=== PATIENT | male | born 1945 | race Caucasian/White ===

== ENCOUNTER 2023-11-10 21:19 | Emergency (ER) | payer MEDICARE, SELFPAY ==
[2023-11-10 21:20] VITALS: BP 111/75
--- NOTE | 2023-11-10 21:47 | ED.GENMED ---
History of Present Illness
General
Chief Complaint: Abdominal Symptoms
Source: patient
Exam Limitations: none
Time Seen by Provider: 11/10/23 21:36
Travel History
Have you had any contact with someone who has COVID-19?: No
Do you have any symptoms of coronavirus? Fever > 100 degrees, chills, cough, shortness of breath, sore throat, loss of taste or smell, muscle aches, or headache?: No
History of Present Illness
History of Present Illness:
This is a 78 year old male that comes in with multiple complaints. States that he went out to cut his lawn on his riding mower. States that his nose started to run. States thta he then started with some abd pain. State that he went into the house
and he started with diarrhea. States that it was a lot and he couldn't believe that he had that much in him. States that his stomach was still upset and he vomited a little. States that he had chills. Denies any fever, chest pain, SOB, headache,
dizziness, urinary burning.
Past History
Past History
ED Past Medical History: Arrthythmia (Atrial fibrillation), Asthma, CAD, CHF, HTN, Hypercholesterolemia, NIDDM, Psychiatric (Anxiety, Depression) and Other (Back pain, )
ED Past Surgical History: Cardiac ( CABG, Cardiac ablation), Orthopedic (Back surgery) and Other (Recent back surgery)
Social History
Tobacco: Former smoker
Alcohol: Occasional
Personal:
Living: with family
Employment: Retired
Review of Systems
Review of Systems
All Other Systems: ROS reviewed and negative except as documented in HPI and ROS
Constitutional: Reports chills; Denies fever
EENT: Reports other (Nasal discharge)
Respiratory: Reports no symptoms; Denies cough or trouble breathing
Cardiac: Reports no symptoms; Denies chest pain
ABD/GI: Reports abdominal pain, nausea, vomiting and diarrhea
: Reports no symptoms
Musculoskeletal: Reports no symptoms
Skin: Reports no symptoms
Neurological: Reports no symptoms; Denies dizzy or headache
Psychiatric: Reports no symptoms
Phy Exam
General Physical Exam
General Presentation: no apparent distress
General age: appears stated age
General Skin: warm and dry
General Habitus: elderly
General Mental: alert
General Hydration: dry mucous membranes
ENT Exam
ENT Exam: TM's normal, pharynx normal and neck supple
Eye Exam
Eye Exam: EOMI
Cardiovascular Exam
Cardiovascular Exam: regular rate/rhythm, normal peripheral pulses and other (Murmur)
Pulmonary Exam
Pulmonary Exam: lungs clear, no respiratory distress, no rales, chest non tender, no crackles, no rhonchi, no wheezing and no cough
Gastrointestinal Exam
Gastrointestinal Exam: non tender, soft, no organomegaly, no pulsatile mass, non distended and other (Hypoactive bowel sounds)
Musculoskeletal Exam
Musculoskeletal Exam: full ROM and no edema
Skin Exam
Skin Exam: normal color, warm/dry, no rash and no petechia
Psychiatric Exam
Psychiatric Exam: normal mood/affect
Course
Orders/Labs/Results
Orders:
Orders
11/10/23 21:46
0.9% Sodium Chloride 1000 ml [Nss] 1,000 ml IV BOLUS
Acetaminophen [Tylenol] 1,000 mg PO NOW STA
CR Chest - 2 Views Urgent
Comment:
Reason For Exam: fever
11/10/23 21:50
Ondansetron Injectable [Zofran] 4 mg IV NOW STA
11/10/23 21:55
COVID-19 Antigen Urgent
Source: Nasal Swab
11/10/23 22:03
Complete Blood Count/With Diff Urgent
Comprehensive Metabolic Panel Urgent
Lactic Acid Urgent
Blood Culture Q30M
ROLDAN Source: Blood/Venous
Specimen Description:
11/10/23 23:20
Urinalysis Reflex To Culture Urgent
Date Specimen was Collected: 11/10/23
Time Specimen was Collected: 23:11
Urine Microscopic Reflex Cult Urgent
Blood Culture Q30M
ROLDAN Source: Blood/Venous
Specimen Description:
Abnormal Lab Results
11/10/23 11/10/23
22:03 23:20
WBC 13.4 H 10^3/uL
(4.8-10.8)
Absolute Neuts (auto) 11.3 H 10^3/uL
(1.4-6.5)
Absolute Lymphs (auto) 0.8 L 10^3/uL
(1.2-3.4)
Absolute Monos (auto) 1.0 H 10^3/uL
(0.1-0.6)
Neutrophils % 84.5 H %
(42.2-75.2)
Lymphocytes % 5.7 L %
(20.5-51.1)
BUN 31 H mg/dl
(9-20)
Glucose 129 H mg/dl
(70-99)
Urine Ketones 1+ A
(Negative)
Ur Occult Blood Reflex 2+ A
(Negative)
Urine RBC 7-10 A /HPF
(0-2)
Urine Bacteria (Reflex) Few A
(Negative)
11/10/23 22:03
11/10/23 22:03
Leukocytosis, Dehydration. Glucose nonfasting. Urine negative for infection. COVID negative, Lactic acid normal at 1.4
Vital Signs
Initial and Last Documented VS:
Initial Vital Signs
Temp Pulse Resp BP Pulse Ox
98.5 F 93 18 111/75 97
11/10/23 21:20 11/10/23 21:20 11/10/23 21:20 11/10/23 21:20 11/10/23 21:20
Last Documented Vital Signs
Temp Pulse Resp BP Pulse Ox
101.6 F H 82 18 131/75 93
11/10/23 21:49 11/10/23 23:31 11/10/23 23:31 11/10/23 23:31 11/10/23 23:31
MDM/Problems Addressed
Differential Diagnosis Includes:
UTI, PNA, Viral syndrome
MDM/Problems Addressed:
This is a 78 year old male that comes in with c/o vomiting diarrhea and chills. States that this started today.
Will get labs, chest x-ray, urine, Give IV fluids and Tylenol for fever
Back into see patient and . Explained that his blood work shows that his WBC are elevated and that he was dehdyrated. Patient chest x-ray is normal and his urine is negative for infection. COVID is negative. This may be a viral illness.
Explained that blood culture were drawn and if they would come back positive patient would be called and asked to come back. Patient to increase his water intake to 8-8oz glasses daily. Follow up with the family doctor for recheck. Return with any
concens.
Chronic conditions affecting care:
NA
Acute Exacerbation and/or Progression of Chronic Illness:
NA
*Radiology
Radiology exam reviewed: preliminary read by ED provider (Chest- Negative for active disease. ) and radiology read reviewed (Chest- No evidence of active cardiopulmonary disease. )
*Pulse Oximetry
Patient hypoxic: no
*EKG
Interpreted by ED Provider?: NA
Rate: EKG- N/A
*Monitoring Coordinator Interpretation
Rate: Monitoring Coordinator- N/A
*Critical Care Note
Total Time (30-74mins, 75-104mins- exclusive of procedures): Not Applicable
ED Attending Note
-
Portions of this chart may have been created with voice recognition software.� Occasional wrong word or��sound alike� substitutions may have occurred due to the inherent limitations of voice recognition software.
Discharge Plan
Departure
Patient Disposition: Home (Routine Discharge)
Date of Disposition: 11/11/23
Time of Disposition: :
Patient with high blood pressure during this ER visit?: Yes
Condition: Good
Covid-19: Negative COVID-19
Discharge Problem:
Fever
Instructions: Fever, Adult (DC), BLOOD PRESSURE
Prescriptions:
No Action
furosemide [Lasix] 40 MG tablet
40 mg PO DAILY
carvedilol [Coreg] 25 MG tablet
25 mg PO BID
aspirin 81 MG tablet,delayed release (DR/EC)
81 mg PO DAILY
lisinopril [Zestril] 30 MG tablet
30 mg PO BID
finasteride 5 MG tablet
5 mg PO DAILY
metaxalone [Skelaxin] 800 MG tablet
400 mg PO BID
dabigatran etexilate [Pradaxa] 150 MG capsule
150 mg PO BID
dofetilide 500 MCG capsule
500 mcg PO Q12
duloxetine 30 MG capsule,delayed release(DR/EC)
90 mg PO DAILY
Referrals:
John Hairston MD [Family Provider] - Follow up in 2-3 days
Activity Restrictions/Additional Instructions:
As discussed, your blood work shows that your WBC are slightly elevated and that you are dehydrated. Please increase your water intake to 8-8oz glasses daily. Your Chest x-ray is negative for any acute process and your urine is negative for
infection. You are COVID negative. This may be a viral illness. If your blood culture would come back positive you will be called and asked to come back. Please use Tylenol or Ibuprofen as needed for any fever. IF YOU HAVE ANY OTHER CONCERNS PLEASE
RETURN TO THE EMERGENCY ROOM.
Interventions
Interventions:
*Risk Screen - Suicide Last Done: 11/10/23 21:20
*General Assessment Last Done: 11/10/23 21:20
*Neglect/Abuse Screening Last Done: 11/10/23 21:20
ED- Fall Risk Assessment Last Done: 11/10/23 22:20
*ED COVID-19 Vaccine History Last Done: 11/10/23 21:48
XG-Xftzmb-Fscicwqbqi Assessment Last Done: 11/10/23 22:20
Discharge Date and Time
Print Language: GREENLANDIC
[2023-11-10 21:54] VITALS: BMI 31.8
[2023-11-10] MEDS: ZOFRAN 4 MG IV (22:06)
[2023-11-10] MEDS: TYLENOL 1000 MG PO (22:06)
[2023-11-10] MEDS: NSS 1000 IV (22:07)
[2023-11-10 22:10] LABS: % Basophils 0.2 % (0-2); % Immature Granulocytes 0.3 % (0-0.5); % Lymphocytes 5.7 % (20.5-51.1); % Monocytes 7.3 % (1.7-9.3); % Neutrophils 84.5 % (42.2-75.2); Absolute Eosinophils 0.3 10^3/uL (0-0.7); Absolute Lymphocytes 0.8 10^3/uL (1.2-3.4); Absolute Neutrophils 11.3 10^3/uL (1.4-6.5); Hemoglobin 14.4 g/dL (13.0-18.0); Mean Corp Hgb Conc. 34.3 g/dL (33.0-37.0); Mean Corpuscular Hgb 30.3 pg (27.0-31.0); Mean Corpuscular Volume 88.4 fL (80.0-94.0); Mean Platelet Volume 9.2 fL (7.4-10.4); Nucleated Red Blood Cells % 0 % (-); Platelet Count 206 10^3/uL (130-400); Red Blood Cell Count 4.75 10^6/uL (4.70-6.10); Red Cell Dist. Width 13.6 % (11.5-14.5); White Blood Cell Count 13.4 10^3/uL (4.8-10.8)
[2023-11-10 22:22] LABS: Lactic Acid 1.4 mmol/L (0.7-2.0)
[2023-11-10 22:25] LABS: ALT (SGPT) 33 U/L (0-50); AST (SGOT) 35 U/L (17-59); Albumin 4.7 g/dl (3.5-5.0); Alkaline Phosphatase 120 U/L (38-126); Blood Urea Nitrogen 31 mg/dl (9-20); Calcium 9.8 mg/dl (8.4-10.2); Carbon Dioxide 25 mmol/L (22-30); Chloride 106 mmol/L (98-107); Estimated Creatinine Clearance 94 ml/min; Glucose 129 mg/dl (70-99); Potassium 4.1 mmol/L (3.5-5.1); Sodium 142 mmol/L (135-145); Total Bilirubin 0.9 mg/dl (0.2-1.3); Total Protein 7.9 g/dl (6.3-8.2); eGFR > 60.00
[2023-11-10 22:54] LABS: COVID-19 Antigen Negative (Negative)
[2023-11-10 23:31] VITALS: BP 131/75
[2023-11-10 23:33] LABS: Urine Albumin Negative (Neg - Trace); Urine Bilirubin Negative (Negative); Urine Character Clear (Clear); Urine Color Yellow; Urine Glucose Negative (Negative); Urine Ketone 1+ (Negative); Urine Leukocyte Negative (Negative); Urine Nitrite Negative (Negative); Urine Occult Blood 2+ (Negative); Urine Specific Gravity 1.015 (<1.030); Urine Urobilinogen Negative (Neg - 1+)
[2023-11-11 00:17] LABS: Urine Bacteria Few (Negative); Urine Squamous Cell >30 /LPF (Few); Urine White Cell 0-2 /HPF (0-5)
[2023-11-11 02:01] VITALS: BP 130/81
== END 2023-11-11 02:00 | disposition home or self-care (01) ==
LOC: EMR 21:19
PROVIDERS: Clinical Nurse Specialist Family Health; EMERGENCY PHYSICIAN Emergency Medicine; FAMILY PHYSICIAN Family Medicine
DX: R50.9 Fever, unspecified (principal); I11.0 Hypertensive heart disease with heart failure; I50.9 Heart failure, unspecified; Z87.891 Personal history of nicotine dependence
CPT/HCPCS: 99284; 96374; 96361; 71046; 80053; 81003; 81015; 83605; 85025; 87040; 87811

== ENCOUNTER 2023-12-05 15:06 | Emergency (ER) | payer MEDICARE, SELFPAY ==
[2023-12-05 15:10] VITALS: BP 168/141
[2023-12-05 15:47] LABS: % Basophils 0.2 % (0-2); % Immature Granulocytes 0.7 % (0-0.5); % Lymphocytes 6.6 % (20.5-51.1); % Monocytes 3.8 % (1.7-9.3); % Neutrophils 87.7 % (42.2-75.2); Absolute Eosinophils 0.1 10^3/uL (0-0.7); Absolute Immature Granulocytes 0.1 10^3/uL (0-0.05); Absolute Lymphocytes 0.8 10^3/uL (1.2-3.4); Absolute Monocytes 0.4 10^3/uL (0.1-0.6); Absolute Neutrophils 9.9 10^3/uL (1.4-6.5); Hematocrit 45.2 % (39.0-52.0); Hemoglobin 14.8 g/dL (13.0-18.0); Mean Corp Hgb Conc. 32.7 g/dL (33.0-37.0); Mean Corpuscular Hgb 30.1 pg (27.0-31.0); Mean Corpuscular Volume 92.1 fL (80.0-94.0); Mean Platelet Volume 9.8 fL (7.4-10.4); Nucleated Red Blood Cells % 0 % (-); Platelet Count 228 10^3/uL (130-400); Red Blood Cell Count 4.91 10^6/uL (4.70-6.10); Red Cell Dist. Width 13.6 % (11.5-14.5); White Blood Cell Count 11.3 10^3/uL (4.8-10.8)
[2023-12-05 15:56] LABS: Lactic Acid 2.6 mmol/L (0.7-2.0)
[2023-12-05 16:00] LABS: ALT (SGPT) 40 U/L (0-50); AST (SGOT) 42 U/L (17-59); Albumin 5.1 g/dl (3.5-5.0); Alkaline Phosphatase 145 U/L (38-126); Blood Urea Nitrogen 24 mg/dl (9-20); Calcium 9.8 mg/dl (8.4-10.2); Carbon Dioxide 23 mmol/L (22-30); Chloride 104 mmol/L (98-107); Glucose 116 mg/dl (70-99); Lipase 122 U/L (23-300); Potassium 4.3 mmol/L (3.5-5.1); Sodium 141 mmol/L (135-145); Total Bilirubin 0.9 mg/dl (0.2-1.3); Total Protein 8.9 g/dl (6.3-8.2); eGFR > 60.00
[2023-12-05 16:14] LABS: COVID-19 Antigen Negative (Negative)
--- NOTE | 2023-12-05 16:37 | ED.GENMED ---
History of Present Illness
<Sejal Valdes HSE ADVISOR - Last Filed: 12/05/23 23:17>
General
Chief Complaint: Fever
Source: patient and spouse
Exam Limitations: none
Time Seen by Provider: 12/05/23 16:30
Nursing documentation reviewed up to this point in time: agreed with
History of Present Illness
History of Present Illness:
78 yo male with h/o asthma, A-fib on Pradaxa, CAD, HTN, CABG presents stating while driving earlier today at 11:30 AM he developed sudden onset of severe nausea, he drove home by 1:30 and had to run into the house with severe diarrhea, and started
vomiting small amounts but with 'really bad heaving/retching.' He took 2 Imodium at 2 PM and has had no diarrhea since.
Patient states 'I am so weak.' He denies fever but has felt chilled. He denies headache. He denies abdominal pain. He denies chest pain or trouble breathing. No recent travel, no known sick contacts. No known exposures, he had a smoothie for
breakfast which she has had before.
Past History
<Sejal Valdes HSE ADVISOR - Last Filed: 12/05/23 23:17>
Past History
ED Past Medical History: Arrthythmia (Atrial fibrillation), Asthma, CAD, CHF, HTN, Hypercholesterolemia, NIDDM, Psychiatric (Anxiety, Depression), Other (Back pain, ) and Other
ED Past Surgical History: Cardiac ( CABG, Cardiac ablation), Orthopedic (Back surgery) and Other (Recent back surgery)
Social History
Tobacco: Former smoker
Alcohol: Occasional
Personal:
Living: with family
Employment: Retired
Review of Systems
<Sejal Valdes, HSE ADVISOR - Last Filed: 12/05/23 23:17>
Review of Systems
Allergies reviewed?: Yes
All Other Systems: ROS reviewed and negative except as documented in HPI and ROS
Constitutional: Reports fatigue and chills
EENT: Denies sore throat
Respiratory: Denies trouble breathing
Cardiac: Denies chest pain
ABD/GI: Reports nausea, vomiting and diarrhea; Denies abdominal pain, bloody stools or black stools
: Reports bleeding (intermittent hematuria followed by [facility]); Denies dysuria, difficulty voiding or urgency
Musculoskeletal: Reports no symptoms
Skin: Reports no symptoms
Neurological: Reports no symptoms
Phy Exam
<Sejal Valdse, HSE ADVISOR - Last Filed: 12/05/23 23:17>
Physical Exam
Physical Exam:
GENERAL: No acute distress. A&Ox3.
CONSTITUTIONAL: Temp 101.3 po
EYES: Clear, conjunctivae normal
Neck: Supple
ENMT: dry mucus membranes, Pharynx nl
RESPIRATORY: Regular respirations, nonlabored, lungs clear.
CARDIOVASCULAR: Regular rate and rhythm, no murmurs, no rubs.
GI: Soft, nontender, nondistended, hypoactive BS
MUSCULOSKELETAL: Moves with ease. Well perfused. No edema
SKIN: Warm, dry, pink
PSYCH: Normal mood and affect. Well kept, interactive and appropriate
NEUROLOGIC: Awake, alert and oriented. No focal neurological deficits
Course
<Sejal Valdes, HSE ADVISOR - Last Filed: 12/05/23 23:17>
Orders/Labs/Results
Orders:
Orders
12/05/23 15:33
COVID-19 Antigen Urgent
Source: Nasal Swab
Complete Blood Count/With Diff Urgent
Comprehensive Metabolic Panel Urgent
Lactic Acid Urgent
Lipase Urgent
Blood Culture Urgent
ROLDAN Source: Blood/Venous
Specimen Description:
Influenza A+B Rapid Molecular Urgent
ROLDAN Source: Nasal Swab
Specimen Description:
12/05/23 16:31
0.9% Sodium Chloride 1000 ml [Nss] 1,000 ml IV BOLUS
12/05/23 16:36
Acetaminophen [Tylenol] 1,000 mg PO NOW STA
12/05/23 17:35
CR Chest - 2 Views Urgent
Comment:
Reason For Exam: Fever, chills
12/05/23 19:14
Urinalysis Reflex To Culture Urgent
Date Specimen was Collected: 12/05/23
Time Specimen was Collected: 19:06
Urine Microscopic Reflex Cult Urgent
12/05/23 19:35
Ondansetron Injectable [Zofran] 4 mg IV NOW STA
Abnormal Lab Results
12/05/23 12/05/23
15:33 19:14
WBC 11.3 H 10^3/uL
(4.8-10.8)
MCHC 32.7 L g/dL
(33.0-37.0)
Abs Immat Gran (auto) 0.1 H 10^3/uL
(0-0.05)
Absolute Neuts (auto) 9.9 H 10^3/uL
(1.4-6.5)
Absolute Lymphs (auto) 0.8 L 10^3/uL
(1.2-3.4)
Immature Gran % 0.7 H %
(0-0.5)
Neutrophils % 87.7 H %
(42.2-75.2)
Lymphocytes % 6.6 L %
(20.5-51.1)
BUN 24 H mg/dl
(9-20)
Glucose 116 H mg/dl
(70-99)
Lactic Acid 2.6 H mmol/L
(0.7-2.0)
Alkaline Phosphatase 145 H U/L
(38-126)
Total Protein 8.9 H g/dl
(6.3-8.2)
Albumin 5.1 H g/dl
(3.5-5.0)
Urine Ketones 1+ A
(Negative)
Ur Occult Blood Reflex 1+ A
(Negative)
Urine RBC 3-6 A /HPF
(0-2)
Urine Bacteria (Reflex) Few A
(Negative)
12/05/23 15:33
12/05/23 15:33
Vital Signs
Initial and Last Documented VS:
Initial Vital Signs
Temp Pulse Resp BP Pulse Ox
97.8 F 100 22 168/141 95
12/05/23 15:10 12/05/23 15:10 12/05/23 15:10 12/05/23 15:10 12/05/23 15:10
Last Documented Vital Signs
Temp Pulse Resp BP Pulse Ox
97.8 F 84 16 116/44 93
12/05/23 15:10 12/05/23 20:00 12/05/23 20:00 12/05/23 20:00 12/05/23 20:00
Continuous Pickling Line Pickler consulted with Physician
Continuous Pickling Line Pickler consulted with physician?: Yes
Name of Physician Consulted: Kristal
<Mo Giraldo, DO - Last Filed: 12/05/23 19:50>
Orders/Labs/Results
Orders:
Orders
12/05/23 15:33
COVID-19 Antigen Urgent
Source: Nasal Swab
Complete Blood Count/With Diff Urgent
Comprehensive Metabolic Panel Urgent
Lactic Acid Urgent
Lipase Urgent
Blood Culture Urgent
ROLDAN Source: Blood/Venous
Specimen Description:
Influenza A+B Rapid Molecular Urgent
ROLDAN Source: Nasal Swab
Specimen Description:
12/05/23 16:31
0.9% Sodium Chloride 1000 ml [Nss] 1,000 ml IV BOLUS
12/05/23 16:36
Acetaminophen [Tylenol] 1,000 mg PO NOW STA
12/05/23 17:35
CR Chest - 2 Views Urgent
Comment:
Reason For Exam: Fever, chills
12/05/23 19:14
Urinalysis Reflex To Culture Urgent
Date Specimen was Collected: 12/05/23
Time Specimen was Collected: 19:06
Urine Microscopic Reflex Cult Urgent
12/05/23 19:35
Ondansetron Injectable [Zofran] 4 mg IV NOW STA
Abnormal Lab Results
12/05/23 12/05/23
15:33 19:14
WBC 11.3 H 10^3/uL
(4.8-10.8)
MCHC 32.7 L g/dL
(33.0-37.0)
Abs Immat Gran (auto) 0.1 H 10^3/uL
(0-0.05)
Absolute Neuts (auto) 9.9 H 10^3/uL
(1.4-6.5)
Absolute Lymphs (auto) 0.8 L 10^3/uL
(1.2-3.4)
Immature Gran % 0.7 H %
(0-0.5)
Neutrophils % 87.7 H %
(42.2-75.2)
Lymphocytes % 6.6 L %
(20.5-51.1)
BUN 24 H mg/dl
(9-20)
Glucose 116 H mg/dl
(70-99)
Lactic Acid 2.6 H mmol/L
(0.7-2.0)
Alkaline Phosphatase 145 H U/L
(38-126)
Total Protein 8.9 H g/dl
(6.3-8.2)
Albumin 5.1 H g/dl
(3.5-5.0)
Urine Ketones 1+ A
(Negative)
Ur Occult Blood Reflex 1+ A
(Negative)
Urine RBC 3-6 A /HPF
(0-2)
Urine Bacteria (Reflex) Few A
(Negative)
12/05/23 15:33
12/05/23 15:33
Vital Signs
Initial and Last Documented VS:
Initial Vital Signs
Temp Pulse Resp BP Pulse Ox
97.8 F 100 22 168/141 95
12/05/23 15:10 12/05/23 15:10 12/05/23 15:10 12/05/23 15:10 12/05/23 15:10
Last Documented Vital Signs
Temp Pulse Resp BP Pulse Ox
97.8 F 84 16 116/44 93
12/05/23 15:10 12/05/23 20:00 12/05/23 20:00 12/05/23 20:00 12/05/23 20:00
<Sejal Valdes, HSE ADVISOR - Last Filed: 12/05/23 23:17>
MDM/Problems Addressed
Differential Diagnosis Includes:
Gastroenteritis, dehydration
MDM/Problems Addressed:
78 yo male with h/o asthma, A-fib on Pradaxa, CAD, HTN, CABG presents stating while driving earlier today at 11:30 AM he developed sudden onset of severe nausea, he drove home by 1:30 and had to run into the house with severe diarrhea, and started
vomiting small amounts but with 'really bad heaving/retching.' He took 2 Imodium at 2 PM and has had no diarrhea since.
Patient states 'I am so weak.' He denies fever but has felt chilled. He denies headache. He denies abdominal pain. He denies chest pain or trouble breathing. No recent travel, no known sick contacts. No known exposures, he had a smoothie for
breakfast which she has had before.
Temp for me is 101.3 po, NAD appears moderately ill
CBC: WBC 11.3 with elevated neutrophils, improved from 11/09
CMP: BUN 24, improved from 11/09, IV fluids infusing for mild dehydration
Lactic 2.6
Lipase within normal limits
COVID test is negative
Patient seen here on 11/09 for abdominal pain and diarrhea. He states he does not have abdominal pain this time.
6:00 PM patient feeling a little better after 1 L IV fluids and Tylenol. Mild frontal headache. Out of bed and ambulated to the bathroom steadily.
7:00 PM:
Chest x-ray: Radiology report read: NAD
Awaiting U/A pt was just now able to urinate
7:45 PM
UA negative patient is feeling much better
Nausea gone, has been OOB and ambulating at baseline, typically has some difficulty ambulating due to back and left leg nerve problem
Patient's had diarrhea off and on throughout the year, given an outpatient slip and container for collection of diarrhea to bring back to the outpatient lab for testing
Case discussed with Dr. Giraldo who examined patient and agrees with assessment and plan
<Sejal Valdes NP - Last Filed: 12/05/23 23:17>
*Critical Care Note
Total Time (30-74mins, 75-104mins- exclusive of procedures): Not Applicable
ED Attending Note
<Sejal Valdes HSE ADVISOR - Last Filed: 12/05/23 23:17>
-
Portions of this chart may have been created with voice recognition software.� Occasional wrong word or��sound alike� substitutions may have occurred due to the inherent limitations of voice recognition software.
<Mo Giraldo DO - Last Filed: 12/05/23 19:50>
ED Attending Note
Patient seen and examined by attending physician: Yes
I performed the substantive portion of visit, reviewed & personally made and approve the management plan that is documented in note by myself or BERNADINE.: Yes
ED Attending Note:
Seen with HSE ADVISOR examined independently agree with assessment and plan nontoxic male better after fluids and Tylenol chest x-ray noted, has not been able to give a stool here we will give an Rx for outpatient stool studies
Discharge Plan
Departure
Patient Disposition: Home (Routine Discharge)
Date of Disposition: 12/05/23
Time of Disposition: 19:43
Patient with high blood pressure during this ER visit?: No
Condition: Good
Discharge Problem:
Acute dehydration, Diarrhea in adult patient, Fever
Instructions: Fever, Adult (DC), Diarrhea, Adult ED, Dehydration, Adult ED
Prescriptions:
New
ondansetron 4 mg tablet,disintegrating
4 mg PO Q8H PRN (Reason: nausea and vomiting) 5 Days Qty: 14 0RF
No Action
furosemide 40 mg Tablet
20 mg PO DAILY
acetaminophen [Tylenol] 325 mg Tablet
650 mg PO BIDPRN PRN (Reason: mild pain)
carvedilol 12.5 mg Tablet
12.5 mg PO BID
loperamide [Imodium] 2 mg Capsule
4 mg PO DAILYPRN PRN (Reason: diarrhea)
lisinopril 20 mg Tablet
20 mg PO BID
hydralazine 25 mg Tablet
25 mg PO DAILYPRN PRN (Reason: high blood pressure)
Theragen Tablet
1 tab PO DAILY
amlodipine 10 mg Tablet
10 mg PO DAILY
ferrous sulfate 325 mg (65 mg iron) Tablet
325 mg PO DAILY
naproxen sodium [Aleve] 220 mg Tablet
220 mg PO DAILYPRN PRN (Reason: mild pain)
warfarin 5 mg Tablet
5 mg PO SUMOWEFRSA
warfarin 5 mg Tablet
7.5 mg PO TUTH
zolpidem 10 mg Tablet
10 mg PO HS
coenzyme Q10 [CoQ-10] 100 mg Capsule
300 mg PO DAILY
rosuvastatin 10 mg Tablet
10 mg PO HS
duloxetine 60 mg Capsule,Delayed Release(Dr/Ec)
60 mg PO DAILY
testosterone 20.25 mg/1.25 gram (1.62 %) Gel In Metered-Dose Pump
2 pump TOPICAL DAILY
Vitamin D3 tablet
1 tab PO DAILY
omeprazole 20 mg Capsule,Delayed Release(Dr/Ec)
20 mg PO DAILY
Referrals:
John Hairston MD [Family Provider] - Follow up in 2-3 days
Activity Restrictions/Additional Instructions:
As we discussed, your workup here today showed that you were dehydrated, drink at least six 8 ounce glasses of water/fluid daily.
Return here immediately for fever above 100.5 that is not relieved with Tylenol, bloody diarrhea, abdominal pain or feeling sicker in any way
I sent a prescription for Zofran (Odansetron) to your pharmacy to use if needed for nausea.
Interventions
Interventions:
*Risk Screen - Suicide Last Done: 12/05/23 15:10
*General Assessment Last Done: 12/05/23 15:10
*Neglect/Abuse Screening Last Done: 12/05/23 15:10
ED- Fall Risk Assessment Last Done: 12/05/23 16:52
*ED COVID-19 Vaccine History Last Done: 12/05/23 16:52
*Nursing Disposition Last Done: 12/05/23 20:10
ED- Neurological Assessment Last Done: 12/05/23 16:52
ED-Skin Assessment Last Done: 12/05/23 17:24
Discharge Date and Time
Discharge Date/Time: 12/05/23 20:10
Print Language: [email or web address]
[2023-12-05 16:41] VITALS: BMI 31.3
[2023-12-05] MEDS: TYLENOL 1000 MG PO (16:45)
[2023-12-05] MEDS: NSS 1000 IV (16:51)
[2023-12-05 16:56] VITALS: BP 142/62
[2023-12-05 17:00] VITALS: BP 146/55
[2023-12-05 19:19] VITALS: BP 117/55
[2023-12-05 19:26] LABS: Urine Albumin Negative (Neg - Trace); Urine Bilirubin Negative (Negative); Urine Character Clear (Clear); Urine Color Yellow; Urine Glucose Negative (Negative); Urine Ketone 1+ (Negative); Urine Leukocyte Negative (Negative); Urine Nitrite Negative (Negative); Urine Occult Blood 1+ (Negative); Urine Urobilinogen Negative (Neg - 1+)
[2023-12-05 19:30] VITALS: BP 116/59
[2023-12-05 19:35] LABS: Urine Bacteria Few (Negative); Urine Squamous Cell 16-20 /LPF (Few); Urine White Cell 0-2 /HPF (0-5)
[2023-12-05 20:00] VITALS: BP 116/44
[2023-12-05] MEDS: ZOFRAN 4 MG IV (20:02)
== END 2023-12-05 20:10 | disposition home or self-care (01) ==
LOC: EMR 15:06
PROVIDERS: Registered Nurse; EMERGENCY PHYSICIAN Emergency Medicine; FAMILY PHYSICIAN Family Medicine
DX: R19.7 Diarrhea, unspecified (principal); R50.9 Fever, unspecified; E86.0 Dehydration; Z11.52 Encounter for screening for COVID-19; I25.10 Atherosclerotic heart disease of native coronary artery without angina pectoris; I10 Essential (primary) hypertension
CPT/HCPCS: 99284; 96374; 96361; 71046; 80053; 81003; 81015; 83605; 83690; 85025; 87040; 87502; 87811

== ENCOUNTER → 2024-03-19 11:59 | Outpatient (REF) | payer MEDICARE, SELFPAY | LOC: RAD 11:59 | PROVIDERS: ATTENDING PHYSICIAN Family Medicine | DX: M25.551 Pain in right hip (principal) | CPT/HCPCS: 73502 ==

== ENCOUNTER 2024-03-28 22:11 | Emergency (ER) | payer MEDICARE, SELFPAY ==
[2024-03-28 22:13] VITALS: BP 169/81
[2024-03-28 22:29] LABS: % Basophils 0.6 % (0-2); % Eosinophils 2.1 % (0-6); % Immature Granulocytes 0.3 % (0-0.5); % Lymphocytes 13.3 % (20.5-51.1); % Monocytes 6.2 % (1.7-9.3); % Neutrophils 77.5 % (42.2-75.2); Absolute Basophils 0.1 10^3/uL (0-0.2); Absolute Eosinophils 0.2 10^3/uL (0-0.7); Absolute Lymphocytes 1.5 10^3/uL (1.2-3.4); Absolute Monocytes 0.7 10^3/uL (0.1-0.6); Absolute Neutrophils 8.7 10^3/uL (1.4-6.5); Hematocrit 36.1 % (39.0-52.0); Hemoglobin 12.5 g/dL (13.0-18.0); Mean Corp Hgb Conc. 34.6 g/dL (33.0-37.0); Mean Corpuscular Hgb 30.6 pg (27.0-31.0); Mean Corpuscular Volume 88.3 fL (80.0-94.0); Mean Platelet Volume 9.9 fL (7.4-10.4); Nucleated Red Blood Cells % 0 % (-); Platelet Count 201 10^3/uL (130-400); Red Blood Cell Count 4.09 10^6/uL (4.70-6.10); Red Cell Dist. Width 12.3 % (11.5-14.5); White Blood Cell Count 11.2 10^3/uL (4.8-10.8)
[2024-03-28 22:44] LABS: ALT (SGPT) 32 U/L (0-50); AST (SGOT) 33 U/L (17-59); Albumin 4.5 g/dl (3.5-5.0); Alkaline Phosphatase 126 U/L (38-126); Blood Urea Nitrogen 20 mg/dl (9-20); Carbon Dioxide 27 mmol/L (22-30); Chloride 101 mmol/L (98-107); Glucose 124 mg/dl (70-99); Potassium 4.3 mmol/L (3.5-5.1); Sodium 140 mmol/L (135-145); Total Bilirubin 0.7 mg/dl (0.2-1.3); Total Protein 7.5 g/dl (6.3-8.2); eGFR > 60.00
--- NOTE | 2024-03-29 00:17 | ED.GENMED ---
History of Present Illness
General
Chief Complaint: Abdominal Symptoms
Source: patient
Exam Limitations: none
Time Seen by Provider: 03/28/24 23:33
History of Present Illness
History of Present Illness:
This is a 79 year old male that comes in with c/o lower abd pain. Sate that he he felt like he had to urinate but couldn't. States that he is also constipated. States that he has take Miralax and Glycerin suppository but he would only have little
rocks. States that he even tried to disimpact himself. States that today he did fall as he tripped over his dogs but had no injury. States that he has a slight headache. Denies any fever, chills, chest pain, SOB, nausea, vomiting, diarrhea,
dizziness, urinary burning.
Past History
Past History
ED Past Medical History: Arrthythmia (Atrial fibrillation), Asthma, CAD, CHF, HTN, Hypercholesterolemia, NIDDM, Psychiatric (Anxiety, Depression), Other (Back pain, ) and Other
ED Past Surgical History: Cardiac ( CABG, Cardiac ablation) and Orthopedic (Back surgery)
Social History
Tobacco: Former smoker
Alcohol: Occasional
Personal:
Living: with family
Employment: Retired
Review of Systems
Review of Systems
All Other Systems: ROS reviewed and negative except as documented in HPI and ROS
Constitutional: Reports no symptoms; Denies fever or chills
EENT: Reports no symptoms
Respiratory: Reports no symptoms; Denies cough or trouble breathing
Cardiac: Reports no symptoms; Denies chest pain
ABD/GI: Reports abdominal pain (lower abd discomfort) and constipated; Denies nausea, vomiting or diarrhea
: Reports difficulty voiding; Denies dysuria, frequency or urgency
Musculoskeletal: Reports no symptoms
Skin: Reports no symptoms
Neurological: Reports headache (Slight); Denies dizzy
Psychiatric: Reports no symptoms
Phy Exam
General Physical Exam
General Presentation: well appearing and no apparent distress
General age: appears stated age
General Skin: warm and dry
General Habitus: elderly
General Mental: alert
General Hydration: dry mucous membranes
ENT Exam
ENT Exam: TM's normal, pharynx normal and neck supple
Eye Exam
Eye Exam: EOMI
Cardiovascular Exam
Cardiovascular Exam: regular rate/rhythm, no edema, normal peripheral pulses and other (Murmur)
Pulmonary Exam
Pulmonary Exam: lungs clear, no respiratory distress, no rales, chest non tender, no crackles, no rhonchi, no wheezing and no cough
Gastrointestinal Exam
Gastrointestinal Exam: normal bowel sounds, non tender, soft, no organomegaly, no pulsatile mass and non distended
Musculoskeletal Exam
Musculoskeletal Exam: full ROM and no edema
Skin Exam
Skin Exam: normal color, warm/dry, no rash and no petechia
Psychiatric Exam
Psychiatric Exam: normal mood/affect
Course
Orders/Labs/Results
Orders:
Orders
03/28/24 22:17
CR Obstruct Series W/pa Chest Urgent
Comment:
Reason For Exam: constipation
03/28/24 22:21
Complete Blood Count/With Diff Urgent
Comprehensive Metabolic Panel Urgent
03/28/24 23:45
Lidocaine 2% [Lidocaine Uro-Jet 2%] 1 syringe .ROUTE .[facility]
03/29/24 00:39
Urinalysis Reflex To Culture Urgent
Date Specimen was Collected: 03/29/24
Time Specimen was Collected: 00:16
Urine Microscopic Reflex Cult Urgent
Abnormal Lab Results
03/28/24 03/29/24
22:21 00:39
WBC 11.2 H 10^3/uL
(4.8-10.8)
RBC 4.09 L 10^6/uL
(4.70-6.10)
Hgb 12.5 L g/dL
(13.0-18.0)
Hct 36.1 L %
(39.0-52.0)
Absolute Neuts (auto) 8.7 H 10^3/uL
(1.4-6.5)
Absolute Monos (auto) 0.7 H 10^3/uL
(0.1-0.6)
Neutrophils % 77.5 H %
(42.2-75.2)
Lymphocytes % 13.3 L %
(20.5-51.1)
Glucose 124 H mg/dl
(70-99)
Urine Ketones 1+ A
(Negative)
Ur Occult Blood Reflex 1+ A
(Negative)
03/28/24 22:21
03/28/24 22:21
WBC slightly elevated. H/H low, Hyperglycemia. Urine is negative for infection.
Vital Signs
Initial and Last Documented VS:
Initial Vital Signs
Temp Pulse Resp BP Pulse Ox
97.7 F 78 18 169/81 97
03/28/24 22:13 03/28/24 22:13 03/28/24 22:13 03/28/24 22:13 03/28/24 22:13
Last Documented Vital Signs
Temp Pulse Resp BP Pulse Ox
97.7 F 78 16 168/101 98
03/28/24 22:13 03/29/24 00:41 03/29/24 00:41 03/29/24 00:41 03/29/24 00:41
MDM/Problems Addressed
Differential Diagnosis Includes:
Urinary retention. UTI, Constipation
MDM/Problems Addressed:
This is a 79 year old male that comes in with c/o constipation and not being able to urinate. States that he feels like he has to urinate but is unable. States that he has only had hard rocks for stool. Patient tried to disimpact himself.
Patient was found to be in urinary retention. Branch catheter was placed and patient is now trying to move his bowels. Will recheck.
Chronic conditions affecting care:
NA
Acute Exacerbation and/or Progression of Chronic Illness:
NA
*Pulse Oximetry
Patient hypoxic: no
*EKG
Interpreted by ED Provider?: NA
Rate: EKG- N/A
*Jawbone Puller Interpretation
Rate: Jawbone Puller- N/A
*Critical Care Note
Total Time (30-74mins, 75-104mins- exclusive of procedures): Not Applicable
ED Attending Note
-
Portions of this chart may have been created with voice recognition software.� Occasional wrong word or��sound alike� substitutions may have occurred due to the inherent limitations of voice recognition software.
Discharge Plan
Departure
Patient Disposition: Home (Routine Discharge)
Date of Disposition: 03/29/24
Time of Disposition: 01:16
Patient with high blood pressure during this ER visit?: No
Condition: Good
Covid-19: Not Applicable
Discharge Problem:
Acute urinary retention
Instructions: How to Care for Your Branch Catheter, Male, Urinary retention - Discharge instructions, BLOOD PRESSURE
Prescriptions:
No Action
furosemide 40 mg Tablet
20 mg PO DAILY
acetaminophen [Tylenol] 325 mg Tablet
650 mg PO BIDPRN PRN (Reason: mild pain)
carvedilol 12.5 mg Tablet
12.5 mg PO BID
loperamide [Imodium] 2 mg Capsule
4 mg PO DAILYPRN PRN (Reason: diarrhea)
lisinopril 20 mg Tablet
20 mg PO BID
hydralazine 25 mg Tablet
25 mg PO DAILYPRN PRN (Reason: high blood pressure)
Theragen Tablet
1 tab PO DAILY
amlodipine 10 mg Tablet
10 mg PO DAILY
ferrous sulfate 325 mg (65 mg iron) Tablet
325 mg PO DAILY
naproxen sodium [Aleve] 220 mg Tablet
220 mg PO DAILYPRN PRN (Reason: mild pain)
warfarin 5 mg Tablet
5 mg PO SUMOWEFRSA
warfarin 5 mg Tablet
7.5 mg PO TUTH
zolpidem 10 mg Tablet
10 mg PO HS
coenzyme Q10 [CoQ-10] 100 mg Capsule
300 mg PO DAILY
rosuvastatin 10 mg Tablet
10 mg PO HS
duloxetine 60 mg Capsule,Delayed Release(Dr/Ec)
60 mg PO DAILY
testosterone 20.25 mg/1.25 gram (1.62 %) Gel In Metered-Dose Pump
2 pump TOPICAL DAILY
Vitamin D3 tablet
1 tab PO DAILY
omeprazole 20 mg Capsule,Delayed Release(Dr/Ec)
20 mg PO DAILY
ondansetron 4 mg tablet,disintegrating
4 mg PO Q8H PRN (Reason: nausea and vomiting) 5 Days Qty: 14 0RF
Referrals:
Fernando Hunt MD [Active] - Follow up in 2-3 days
John Hairston MD [Family Provider] - Call in 1-3 days for appt
Activity Restrictions/Additional Instructions:
As discussed, your urine is negative for infection. You did have urinary retention for which a catheter has been place. This was most likely causing your constipation as the bladder was so distended. You have had a good BM here. Please increase your
water intake to 8-8oz glasses daily. Follow up with the Urologist in the next 2-3 days for recheck and for them to remove the catheter. IF YOU HAVE ANY FEVER, OR YOU HAVE ANY OTHER CONCERNS PLEASE RETURN TO THE EMERGENCY ROOM.
Interventions
Interventions:
*Risk Screen - Suicide Last Done: 03/28/24 22:16
*General Assessment Last Done: 03/29/24 00:41
*Neglect/Abuse Screening Last Done: 03/28/24 22:16
ED- Fall Risk Assessment Last Done: 03/29/24 00:41
*ED COVID-19 Vaccine History Last Done: 03/29/24 00:41
QQ-Tijbrt-Mnrzhbgdhe Assessment Last Done: 03/29/24 00:43
Discharge Date and Time
Print Language: OMANI
[2024-03-29 00:41] VITALS: BP 168/101
[2024-03-29 00:42] VITALS: BMI 31.4
[2024-03-29 00:52] LABS: Urine Albumin Negative (Neg - Trace); Urine Bilirubin Negative (Negative); Urine Character Clear (Clear); Urine Color Yellow; Urine Glucose Negative (Negative); Urine Ketone 1+ (Negative); Urine Leukocyte Negative (Negative); Urine Nitrite Negative (Negative); Urine Occult Blood 1+ (Negative); Urine Specific Gravity 1.005 (<1.030); Urine Urobilinogen Negative (Neg - 1+)
[2024-03-29 01:35] LABS: Urine Red Blood Cell 16-20 /HPF (0-2)
[2024-03-29 01:36] LABS: Urine Bacteria Few (Negative)
== END 2024-03-29 01:49 | disposition home or self-care (01) ==
LOC: EMR 22:11
PROVIDERS: Clinical Nurse Specialist Family Health; Emergency Medicine; EMERGENCY PHYSICIAN Emergency Medicine; FAMILY PHYSICIAN Family Medicine
DX: R33.9 Retention of urine, unspecified (principal); R10.30 Lower abdominal pain, unspecified; K59.00 Constipation, unspecified; I48.91 Unspecified atrial fibrillation; J45.909 Unspecified asthma, uncomplicated; I25.10 Atherosclerotic heart disease of native coronary artery without angina pectoris; I11.0 Hypertensive heart disease with heart failure; I50.9 Heart failure, unspecified; E78.00 Pure hypercholesterolemia, unspecified; E11.65 Type 2 diabetes mellitus with hyperglycemia; F41.8 Other specified anxiety disorders; Z87.891 Personal history of nicotine dependence; Z95.1 Presence of aortocoronary bypass graft; Z95.2 Presence of prosthetic heart valve; Z98.1 Arthrodesis status
CPT/HCPCS: 99283; 51702; 74022; 80053; 81003; 81015; 85025

== ENCOUNTER → 2025-03-03 15:41 | Outpatient (REF) | payer MEDICARE, SELFPAY | LOC: RAD 15:41 | PROVIDERS: ATTENDING PHYSICIAN Physician Assistant; FAMILY PHYSICIAN Family Medicine | DX: M47.816 Spondylosis without myelopathy or radiculopathy, lumbar region (principal); R22.42 Localized swelling, mass and lump, left lower limb | CPT/HCPCS: 93970 ==

== ENCOUNTER 2025-03-06 14:11 | Emergency (ER) | payer MEDICARE, SELFPAY ==
[2025-03-06 14:17] VITALS: BP 132/86
[2025-03-06 14:44] LABS: Hematocrit 44.6 % (39.0-52.0); Hemoglobin 15.0 g/dL (13.0-18.0); Mean Corp Hgb Conc. 33.6 g/dL (33.0-37.0); Mean Corpuscular Volume 93.7 fL (80.0-94.0); Nucleated Red Blood Cells % 0 % (-); Platelet Count 217 10^3/uL (130-400); Red Cell Dist. Width 13.3 % (11.5-14.5)
[2025-03-06 14:54] LABS: ALT (SGPT) 30 U/L (0-50); AST (SGOT) 35 U/L (17-59); Albumin 5.1 g/dl (3.5-5.0); Alkaline Phosphatase 144 U/L (38-126); Blood Urea Nitrogen 26 mg/dl (9-20); Calcium 10.0 mg/dl (8.4-10.2); Carbon Dioxide 22 mmol/L (22-30); Chloride 107 mmol/L (98-107); Glucose 112 mg/dl (70-99); Lipase 67 U/L (23-300); Potassium 4.5 mmol/L (3.5-5.1); Sodium 141 mmol/L (135-145); Total Protein 8.9 g/dl (6.3-8.2); eGFR > 60.00
[2025-03-06] MEDS: NSS 1000 IV (19:22)
[2025-03-06 19:38] VITALS: BMI 29.7
[2025-03-06] MEDS: TYLENOL 650 MG PO (19:53)
[2025-03-06] MEDS: NSS 500 IV (20:30)
[2025-03-06 21:41] VITALS: BP 130/80
--- NOTE | 2025-03-06 21:42 | ED.GENMED ---
History of Present Illness
General
Chief Complaint: Abdominal Symptoms
Source: patient
Exam Limitations: none
Time Seen by Provider: 03/06/25 18:29
History of Present Illness
History of Present Illness:
79-year-old male presents complaining of abdominal pain nausea vomiting and diarrhea onset today. He took the Reglan at home as he had a similar episode of this about 6 to 8 weeks ago. Since taking the Reglan he has had no further vomiting he has
persisted have loose stools however his pain is resolved as well. No chest pain or shortness of breath. He feels just dehydrated. No fevers. No urinary symptoms. No recent antibiotics. No other complaints
Past History
Past History
ED Past Medical History: Arrthythmia (Atrial fibrillation), Asthma, CAD, CHF, HTN, Hypercholesterolemia, NIDDM, Psychiatric (Anxiety, Depression), Other (Back pain, ) and Other
ED Past Surgical History: Cardiac ( CABG, Cardiac ablation) and Orthopedic (Back surgery)
Social History
Tobacco: Former smoker
Alcohol: Occasional
Personal:
Living: with family
Employment: Retired
Phy Exam
Physical Exam
Physical Exam:
General: Well-appearing male no acute respiratory distress HEENT normal cephalic atraumatic mucosa dry
Heart: Regular rate and rhythm
Lungs: Clear no wheeze
Abdomen is soft nontender
Extremities: No cyanosis
Course
Orders/Labs/Results
Orders:
Orders
03/06/25 14:33
Complete Blood Count/With Diff Urgent
Comprehensive Metabolic Panel Urgent
Lipase Urgent
03/06/25 18:58
STOOL [C difficile Antigen & Toxins] Urgent
ROLDAN Source: Feces/Stool
Specimen Description:
Date Specimen was Collected: 03/06/25
Time Specimen was Collected: 21:20
Stool Culture Urgent
ROLDAN Source: Feces/Stool
Specimen Description:
Date Specimen was Collected: 03/06/25
Time Specimen was Collected: 21:20
0.9% Sodium Chloride 1000 ml [Nss] 1,000 ml IV BOLUS
03/06/25 19:37
Acetaminophen [Tylenol] 650 mg PO NOW STA
03/06/25 20:16
Urinalysis Reflex To Culture Urgent
Date Specimen was Collected: 03/06/25
Time Specimen was Collected: 14:24
03/06/25 20:23
0.9% Sodium Chloride 500 ml [Nss] 500 ml IV BOLUS
Abnormal Lab Results
03/06/25
14:33
MCH 31.5 H pg
(27.0-31.0)
Abs Immat Gran (auto) 0.1 H 10^3/uL
(0-0.05)
Absolute Neuts (auto) 8.7 H 10^3/uL
(1.4-6.5)
Absolute Lymphs (auto) 0.8 L 10^3/uL
(1.2-3.4)
Neutrophils % 90.1 H %
(42.2-75.2)
Lymphocytes % 7.7 L %
(20.5-51.1)
Monocytes % 1.3 L %
(1.7-9.3)
BUN 26 H mg/dl
(9-20)
Glucose 112 H mg/dl
(70-99)
Alkaline Phosphatase 144 H U/L
(38-126)
Total Protein 8.9 H g/dl
(6.3-8.2)
Albumin 5.1 H g/dl
(3.5-5.0)
03/06/25 14:33
03/06/25 14:33
Vital Signs
Initial and Last Documented VS:
Initial Vital Signs
Temp Pulse Resp BP Pulse Ox
97.7 F 85 22 132/86 98
03/06/25 14:17 03/06/25 14:17 03/06/25 14:17 03/06/25 14:17 03/06/25 14:17
Last Documented Vital Signs
Temp Pulse Resp BP Pulse Ox
97.7 F 82 15 130/80 98
03/06/25 14:17 03/06/25 21:41 03/06/25 21:41 03/06/25 21:41 03/06/25 21:41
*Pulse Oximetry
SaO2: 98
Oxygen Mode of Delivery: Room air
Patient hypoxic: no
*Critical Care Note
Total Time (30-74mins, 75-104mins- exclusive of procedures): Not Applicable
Update Note
Update Note:
Patient overall nontoxic with benign abdominal exam and doubt any tenderness but has vomiting and diarrhea. Consider viral illness versus electrolyte abnormality versus colitis. Given benign exam we will hold off on imaging but will treat
supportively with fluids. Labs reviewed without significant findings. Patient feeling better after fluids. Unable to provide stool sample here. Stable for discharge
ED Attending Note
-
Portions of this chart may have been created with voice recognition software.� Occasional wrong word or��sound alike� substitutions may have occurred due to the inherent limitations of voice recognition software.
Discharge Plan
Departure
Patient Disposition: Home (Routine Discharge)
Date of Disposition: 03/06/25
Time of Disposition: 21:43
Patient with high blood pressure during this ER visit?: No
Discharge Problem:
Vomiting and diarrhea
Instructions: Nausea and Vomiting, Adult (DC)
Prescriptions:
No Action
furosemide 40 mg Tablet
20 mg PO DAILY
acetaminophen [Tylenol] 325 mg Tablet
650 mg PO BIDPRN PRN (Reason: mild pain)
carvedilol 12.5 mg Tablet
12.5 mg PO BID
loperamide [Imodium] 2 mg Capsule
4 mg PO DAILYPRN PRN (Reason: diarrhea)
lisinopril 20 mg Tablet
20 mg PO BID
hydralazine 25 mg Tablet
25 mg PO DAILYPRN PRN (Reason: high blood pressure)
Theragen Tablet
1 tab PO DAILY
amlodipine 10 mg Tablet
10 mg PO DAILY
ferrous sulfate 325 mg (65 mg iron) Tablet
325 mg PO DAILY
naproxen sodium [Aleve] 220 mg Tablet
220 mg PO DAILYPRN PRN (Reason: mild pain)
warfarin 5 mg Tablet
5 mg PO SUMOWEFRSA
warfarin 5 mg Tablet
7.5 mg PO TUTH
zolpidem 10 mg Tablet
10 mg PO HS
coenzyme Q10 [CoQ-10] 100 mg Capsule
300 mg PO DAILY
rosuvastatin 10 mg Tablet
10 mg PO HS
duloxetine 60 mg Capsule,Delayed Release(Dr/Ec)
60 mg PO DAILY
testosterone 20.25 mg/1.25 gram (1.62 %) Gel In Metered-Dose Pump
2 pump TOPICAL DAILY
Vitamin D3 tablet
1 tab PO DAILY
omeprazole 20 mg Capsule,Delayed Release(Dr/Ec)
20 mg PO DAILY
ondansetron 4 mg tablet,disintegrating
4 mg PO Q8H PRN (Reason: nausea and vomiting) 5 Days Qty: 14 0RF
Referrals:
John Hairston MD [Family Provider, Family Practice]
Activity Restrictions/Additional Instructions:
Stay hydrated. Use your nausea medicine if needed. Drink clear liquids initially and advance to bland diet as tolerated. Return if worse
Interventions
Interventions:
*Risk Screen - Suicide Last Done: 03/06/25 14:17
*General Assessment Last Done: 03/06/25 14:17
PM-Xoifoh-Hfjypehfql Assessment Last Done: 03/06/25 19:38
Discharge Date and Time
Print Language: SLOVENIAN
== END 2025-03-06 22:03 | disposition home or self-care (01) ==
LOC: EMR 14:11
PROVIDERS: Student in an Organized Health Care Education/Training Program; EMERGENCY PHYSICIAN Emergency Medicine; FAMILY PHYSICIAN Family Medicine
DX: R11.2 Nausea with vomiting, unspecified (principal); R19.7 Diarrhea, unspecified; R10.9 Unspecified abdominal pain; E11.9 Type 2 diabetes mellitus without complications; E78.00 Pure hypercholesterolemia, unspecified; I11.0 Hypertensive heart disease with heart failure; I50.9 Heart failure, unspecified; I48.91 Unspecified atrial fibrillation; I25.10 Atherosclerotic heart disease of native coronary artery without angina pectoris; Z87.891 Personal history of nicotine dependence; Z95.1 Presence of aortocoronary bypass graft
CPT/HCPCS: 96360; 96361; 99284; 80053; 83690; 85025